=== PATIENT | female | born 1975 | race Caucasian/White ===

== ENCOUNTER → 2017-01-23 | Outpatient (CLI) | payer OTHER ==
[~2017-01-23] MED LIST: ACCUNEB SO1.25 MG/1; ADULT TUSS100 MG/5 M PO; ATENOLOL 25 MG25 M1 PO; BENZONATATE200 MG PO; BIOTIN1 MG PO; ESTRADIOL TRAN1 EAC2 TD; FLORINEF ACETA0.1 MG PO; IBUPROFEN 200200 M1 PO; LASIX 20 MG TAB20 MG PO; MS CONTIN15 MG PO; NEURONTIN 300300 M1 PO; NEXIUM40 MG PO; PANTOPRAZOLE SO40 M1 PO; POTASSIUM20 PO; PREDNISONE 20 M20 M1 PO; PROVERA5 MG PO; REGLAN 10 MG TA10 MG PO; SODIUM CHLORIDE1 G2 PO; TUMS PO; UNICOMPLEX M TA1 TA1 PO; VIRTUSSIN AC L473 ML PO; VITAMIN D1000 UNI1 PO
--- NOTE | ~2017-01-23 | CNG ---
[facility] [place] [address] CYTO-NONGYN REPORT PROCEDURE Name: FRANK MONSON Room #: REG JAVIER Garcia#: [id number] Admission: 01/23/17 Date of : 75 Discharge: Report #: [id number] Path Case #: [id number] CYTOPATHOLOGY REPORT COLLECTION DATE: 01/23/2017 RECEIVED DATE: 01/23/2017 SUBMITTING PHYS: Dr. Bora Cardozo OTHER PHYS: Dr. Alejandro Romeo CLINICAL HISTORY: Cough. SPECIMEN(S) RECEIVED: A.Bronchial brush, RLL B.Bronchoalveolar lavage, RLL * * * * * * * * * * * * FINAL DIAGNOSIS: A. Bronchial brush, RLL: - No malignant cells identified. Benign bronchial cells identified. B. Bronchoalveolar lavage, RLL: - No malignant cells identified. Pulmonary macrophages and some inflammatory cells identified. PATHOLOGIST: Dre Shah M.D. REPORT ELECTRONICALLY SIGNED BY: Dre Shah M.D. DATE/TIME: 01/26/2017 08:16 * * * * * * * * * * * * GROSS PATHOLOGY: A. Bronchial brush, RLL: The specimen is labeled "Frank Monson" and consists of a brush tip in fixative, and three fixed slides. One ThinPrep slide was prepared. B. Bronchoalveolar lavage, RLL: The specimen is submitted unfixed, labeled "Frank Monson". Received by the Cytology Department is 15 mL of cloudy fluid. One ThinPrep slide was prepared. (clt 01.23.2017) HOUSE RN(S): JAMMIE Rand(ASCP) INITIAL CPT CODE(S): A; 34963 B; 90584 Professional services performed by [facility] at [facility] [address], [place] [address] Technical services performed by [facility] at [address] [place] [address] [address] [place] [address] CYTO-NONGYN REPORT PROCEDURE Name: FRANK MONSON Room #: REG [facility].#: [id number] Admission: 01/23/17 Date of : 75 Discharge: Report #: [id number] Path Case #: [id number] [facility] [address] [address]. [facility] [address] [place] [address] [address] [place] [address] PHONE: [phone] DIRECTOR: Ron Calix M.D. * * * END OF REPORT * * *
--- NOTE | ~2017-01-23 | P ---
[facility] [place] [address] PROCEDURE REPORT Name: FRANK HARRINGTON Room #: REG [facility]#: [id number] Admission: 01/23/17 Attend Phys: Bora Cardozo MD Discharge: Date of : 75 Report #: [id number] THIS REPORT FOR: //name// CC: Alejandro Cardozo DATE OF SERVICE: 01/23/2017 PROCEDURE: Fiberoptic bronchoscopy with bronchoalveolar lavage of the right lower lobe and cytologic brushings of the right lower lobe. INDICATION: Persistent cough, posterior right lower lung infiltrate, ASA classification class 2. PROCEDURE NOTATION: After discussing risks, benefits of planned procedure with the patient, she desired to proceed. After obtaining informed consent, she was brought to the greenskeeper laborer room 3 where she was placed on continuous cardiopulmonary monitoring, did not require any supplemental oxygen, was given 4% lidocaine nebulized to anesthetize the upper respiratory tract. Once accomplished, she received conscious sedation, a total of 6 mg of Versed and 37.5 mcg of fentanyl were required to provide adequate sedation and were titrated during the procedure. Once complete, bronchoscope was passed through an oral bite block until the vocal cords were visualized. 1% lidocaine was instilled in the vocal cords and trachea to provide topical anesthesia. Once accomplished, airway was surveyed. FINDINGS: Mainstem, lobar, segmental and subsegmental bronchi and trachea were all explored and appeared patent with no significant anatomic variation or significant disease. Vocal cords appeared slightly edematous, but without any significant erythema. There were some thick opaque mucus coming from the right lower lung. Cytologic brushings were sampled and sent for cytologic tests. Large volume bronchoalveolar lavage was then performed in this area and sent for cytopathology and cultures. The patient tolerated well. No noted complications. IMPRESSION: Persistent cough with right lower lung infiltrate, some thick secretions emanating from that area, status post bronchoscopy with brushings and lavage. PLAN: Await above testing. Treat with systemic steroids and Augmentin for 10 days while awaiting test results. By: [id number] Bora Cardozo MD /nt
== END | disposition home or self-care (01) ==
LOC: CATH 07:31
DX: R91.8 Other nonspecific abnormal finding of lung field (principal)

== ENCOUNTER → 2017-03-26 | Outpatient (CLI) | payer OTHER | LOC: CAT 08:34 | DX: R91.8 Other nonspecific abnormal finding of lung field (principal) ==